=== PATIENT | female | born 1960 | race Caucasian/White ===

== ENCOUNTER 2018-04-27 10:17 | Outpatient (REF) | payer MEDICARE, MEDICAID, SELFPAY ==
[2018-04-27 22:15] LABS: ALT 49 U/L (12-78); AST 44 U/L (15-37); Alkaline Phosphatase 61 U/L (46-116); Anion Gap 12.5 mmol/L (3-11); BUN 12 mg/dL (7-18); Bilirubin, Total 0.7 mg/dL (0.2-1.0); CO2 23.5 mmol/L (21.0-32.0); CREATININE 0.74 mg/dL (0.55-1.02); Calcium 9.2 mg/dL (8.5-10.1); Chloride 104 mmol/L (98-107); Cholesterol 176 mg/dL (50-200); Glucose 106 mg/dL (70-100); HDL Cholesterol 57 mg/dL (40-60); LDL CHOLESTEROL 102 mg/dL (<100); Magnesium 1.4 mg/dL (1.8-2.4); Potassium 4.2 mmol/L (3.5-5.1); Sodium 140 mmol/L (136-145); Total Protein 6.7 g/dL (6.4-8.2); Triglyceride 158 mg/dL (30-150)
[2018-04-27 22:43] LABS: Creatine Kinase 88 U/L (26-192)
== END 2018-04-27 10:18 ==
LOC: NCHCN 10:17
PROVIDERS: PCP Nurse Practitioner Family; Visit Provider Nurse Practitioner Family
DX: E78.5 Hyperlipidemia, unspecified (principal); E83.42 Hypomagnesemia
CPT/HCPCS: 80053; 80061; 82550; 83721; 83735

== ENCOUNTER 2018-06-09 10:01 | Outpatient (REF) | payer MEDICARE, MEDICAID, SELFPAY ==
[2018-06-09 20:44] LABS: Magnesium 1.5 mg/dL (1.8-2.4)
== END 2018-06-09 10:21 ==
LOC: LBN 10:01
PROVIDERS: PCP Nurse Practitioner Family; Visit Provider Nurse Practitioner Family
DX: E83.42 Hypomagnesemia (principal); G89.29 Other chronic pain; E78.5 Hyperlipidemia, unspecified; R32 Unspecified urinary incontinence; Z72.0 Tobacco use
CPT/HCPCS: 83735

== ENCOUNTER 2022-01-12 14:10 | Outpatient (CLI) | payer MEDICARE, MEDICAID, SELFPAY ==
--- NOTE | 2022-01-12 14:00 | DI.RAD_ITS ---
Exam(s) XR HIP LT COMPLETE AP PELVIS EXAM: XR HIP LT COMPLETE AP PELVIS INDICATION: L hip pain. COMPARISON: No exams were available for comparison TECHNIQUE: 2D digital imaging was performed. Two views. FINDINGS: Severe narrowing of the left hip joint space, periarticular spurring and sclerosis. Mild spurring at the right hip joint. Right hip joint space is well maintained. IMPRESSION: Advanced degenerative changes of the left hip. DATA REPOSITORY: RADIATION DOSE DELIVERED:
== END 2022-01-12 14:11 | disposition home or self-care (01) ==
LOC: DIORS 14:10
PROVIDERS: PCP Registered Nurse Diabetes Educator; Referring Provider Nurse Practitioner Family; Visit Provider Student in an Organized Health Care Education/Training Program
DX: M16.12 Unilateral primary osteoarthritis, left hip
CPT/HCPCS: 99203; 73502

== ENCOUNTER → 2022-01-28 12:43 | Outpatient (BNVA) | payer MEDICARE, MEDICAID, SELFPAY | PROVIDERS: PCP Registered Nurse Diabetes Educator; Referring Provider Registered Nurse Diabetes Educator; Visit Provider Physician Assistant | DX: Z01.818 Encounter for other preprocedural examination (principal); M16.12 Unilateral primary osteoarthritis, left hip ==

== ENCOUNTER 2022-02-16 03:06 | Outpatient (CLI) | payer MEDICARE, MEDICAID, SELFPAY ==
[2022-02-16 10:35] LABS: HGB 13.7 g/dL (11.2-15.7); MCHC 33.4 % (32.0-36.0); MCV 93 fL (80-95); Platelet Count 216 10^3/uL (130-400); RBC 4.42 10^6/uL (3.93-5.22); RDW 12.7 % (11.7-14.6); RDW-SD 43.3 fL; WBC 10.79 10^3/uL (4.4-10.8)
[2022-02-16 11:49] LABS: Anion Gap 10.8 mmol/L (3-11); BUN 10 mg/dL (7-18); CO2 27.2 mmol/L (21.0-32.0); CREATININE 0.7 mg/dL (0.55-1.02); Chloride 104 mmol/L (98-107); Glucose 111 mg/dL (74-106); Sodium 142 mmol/L (136-145)
[2022-02-16 13:45] LABS: Source Nasal/Nares
[2022-02-16 21:01] LABS: COVID-19 PCR Negative (Negative)
== END 2022-02-16 03:07 | disposition home or self-care (01) ==
PROVIDERS: PCP Registered Nurse Diabetes Educator; Visit Provider Student in an Organized Health Care Education/Training Program
DX: M25.552 Pain in left hip (principal); M16.12 Unilateral primary osteoarthritis, left hip; Z20.822 Contact with and (suspected) exposure to COVID-19; Z01.818 Encounter for other preprocedural examination; Z01.812 Encounter for preprocedural laboratory examination
CPT/HCPCS: 36415; 80048; 85027; 87635; U0005

== ENCOUNTER 2022-02-16 03:31 | Outpatient (CLI) | payer MEDICARE, MEDICAID, SELFPAY | END 2022-02-16 03:32 | disposition home or self-care (01) | PROVIDERS: PCP Registered Nurse Diabetes Educator; Visit Provider Student in an Organized Health Care Education/Training Program ==

== ENCOUNTER 2022-02-17 08:00 | Day surgery (SDC) | payer MEDICARE, MEDICAID, SELFPAY ==
[2022-02-17] VITALS (7 sets, daily range): BP systolic 90–172; BP diastolic 56–86; PULSE 57–72; RESP 16–22; TEMP 36.1–36.6; O2SAT 97–100; BMI 29.7
--- NOTE | 2022-02-17 07:57 | PDOC.DSDIS_ITS ---
Discharge Plan Disposition Patient Disposition: HOME Condition: Stable Discharge Details Reason For Visit: Left CHARITY Attending Provider: Tim Romero Primary Care Provider: Maryam Parra Home Meds and New Rx's Prescriptions: New celecoxib [Celebrex] 200 mg capsule 200 mg PO BID Qty: 60 0RF aspirin 81 mg tablet,delayed release (DR/EC) 81 mg PO BID Qty: 60 0RF acetaminophen 500 mg capsule 1,000 mg PO Q8H PRN PRNQty: 90 0RF oxycodone 5 mg tablet 5 mg PO Q4H PRNQty: 18 0RF Continued cholecalciferol (vitamin D3) 50 mcg (2,000 unit) capsule 50 mcg PO DAILY ascorbate calcium (vitamin C) 500 mg tablet 500 mg PO DAILY famotidine 40 mg tablet 40 mg PO DAILY baclofen 20 mg tablet 20 mg PO TID Rx Instructions: to be taken 3 times per day, 2 tabs qhs, per neurologist citalopram 20 mg tablet 20 mg PO DAILY simvastatin 20 mg tablet 20 mg PO DAILY epinephrine 0.3 mg/0.3 mL auto-injector 0.3 mg IM ONCE Rx Instructions: as a single dose; may repeat once loperamide-simethicone 2-125 mg Tablet,Chewable 1 tab PO DAILY PRN omeprazole 20 mg capsule,delayed release(DR/EC) 40 cap PO DAILY Label Comments: TAKE TWO CAPSULES BY MOUTH EVERY DAY Discontinued acetaminophen [Tylenol] 325 mg tablet 325 mg PO Q4H PRN No Action acetaminophen [Tylenol] 325 mg Capsule 650 mg Discharge Instructions Additional Instructions: Total Hip Discharge Instructions Activity: The most important activity is to walk. You should try to take short walks a few times a day. You have no restrictions on movement or positioning, but do not try to force what you do. You will find some stiffness and weakness with hip flexion (lifting your knee). Do not try to strengthen this too early, continue to practice walking and stairs and this will come. - Outpatient physical therapy can be helpful to help return you to a normal gait and improve your flexibility and strength. This can start around 2 weeks. For some patients, it?s not necessary. Usually this is determined at the time of discharge or at the first post-operative visit. - You should wear the DIXON hose on both legs for 2 weeks. Dressing: Keep the surgical dressing in place for at least one week. After the first week it may be removed and replace with light gauze and tape or nothing. It may get wet after 3 days but avoid soaking the dressing. If it gets wet, just lightly pat dry. It is important to always keep some gauze between skin folds, especially when you are sitting. Spend some time with the wound exposed when you are lying flat as the incision does wrinkle onto itself. Medications: - You should take Tylenol and an anti-inflammatory Celebrex as your primary pain control medications. If the Celebrex is too expensive or not covered, please call the office for another alternative (Advil/Ibuprofen or Naproxen/Aleve). - You have been prescribed a stronger pain medication Oxycodone for breakthrough pain, take as needed as prescribed. - Continue with your previously prescribed stomach acid reduction agent Famotidine to help reduce stomach acid and reflux. - You will be taking Aspirin 81mg twice a day for DVT prevention unless instructed otherwise. - If you have constipation you should take Colace or Miralax (both [id number]). It takes most people 3-4 days to have a bowel movement. Follow-up: 2 weeks If you have any acute concerns or questions, please do not hesitate to contact the office at [phone]. You may contact Dr. Romero with any questions after hours through the hospital at [phone] or on his cell phone at [phone]. Stand Alone Forms: Anesthesia Discharge Inst., Zain Persaud (U) Referrals: Tim Romero MD [ [facility]] - Equipment/Supplies: Walker Activity:: Activity as Tolerated Remove Dressings/Wound Care:: Do Not Remove Shower/Bathe:: 72 hours Diet:: As Tolerated Discharge Orders Discharge Orders: Discharge Order (Routine); Ordered 02/17/22 Ordered By: Tim Romero DS: Diagnosis Discharge Diagnosis (1) Primary osteoarthritis of left hip: Status: Chronic
--- NOTE | 2022-02-17 08:14 | W.ANESPRE ---
General Info Date of Service Date Performed: 02/17/22 Height: 5 ft 1.5 in Weight: 72.575 kg Body Mass Index (BMI): 29.7 Surgical Procedure: Operation Date: 02/17/22 12:20 Proposed Procedure Side Surgeon p Hip Total Hip Anterior Left Tim Romero MD Meds Allergies and Home Medications Allergies Allergy/AdvReac Type Severity Reaction Status Date / Time iohexol [From Omnipaque] Allergy Severe Anaphylaxis Unverified 02/17/22 08:30 meloxicam Allergy Intermediate Hives Verified 02/17/22 08:30 glatiramer (copolymer 1) Allergy Unknown Verified 02/17/22 08:30 [From Copaxone] iv contrast Allergy Severe Anaphylaxis Uncoded 02/17/22 08:30 Home Medication Medication Instructions Recorded baclofen 20 mg tablet 20 mg PO TID 12/30/21 citalopram 20 mg tablet 20 mg PO DAILY 12/30/21 epinephrine 0.3 mg/0.3 mL 0.3 mg IM ONCE 12/30/21 injection, auto-injector famotidine 40 mg tablet 40 mg PO DAILY 12/30/21 simvastatin 20 mg tablet 20 mg PO DAILY 12/30/21 ascorbate calcium (vitamin C) 500 500 mg PO DAILY 01/28/22 mg tablet cholecalciferol (vitamin D3) 50 50 mcg PO DAILY 01/28/22 mcg (2,000 unit) capsule loperamide-simethicone 2 mg-125 mg 1 tab PO DAILY PRN 02/16/22 chewable tablet omeprazole 20 mg capsule,delayed 40 cap PO DAILY 02/16/22 release acetaminophen 325 mg capsule 650 mg 02/17/22 (Tylenol) acetaminophen 500 mg capsule 1,000 mg PO Q8H PRN PRN #90 caps 02/17/22 aspirin 81 mg tablet,delayed 81 mg PO BID #60 tabs 02/17/22 release celecoxib 200 mg capsule (Celebrex) 200 mg PO BID #60 caps 02/17/22 oxycodone 5 mg tablet 5 mg PO Q4H PRN #18 tabs 02/17/22 Current Visit Medications: Current Medications Generic Name Dose Route Start Last Admin Trade Name Freq PRN Reason Stop Dose Admin Acetaminophen 1,000 mg 02/17/22 06:00 Acetaminophen 500 Mg Tab PO 02/17/22 16:00 PREOP ZAKI Acetaminophen 1,000 mg 02/17/22 14:00 Acetaminophen 500 Mg Tab PO TID ZAKI Aspirin 81 mg 02/17/22 20:00 Aspirin E.C. 81 Mg Tabec PO BID [facility] Celecoxib 400 mg 02/17/22 06:00 Celecoxib 200 Mg Cap PO 02/17/22 16:00 PREOP ZAKI Celecoxib 200 mg 02/17/22 20:00 Celecoxib 200 Mg Cap PO BID ZAKI Docusate Sodium 100 mg 02/17/22 07:54 Docusate Sodium 100 Mg Cap PO BID PRN PRN Constipation Hydromorphone HCl 0.5 mg 02/17/22 07:54 Hydromorphone 2 Mg/Ml Vial IVP Q2H PRN PRN Ringer's Solution 1,000 mls @ 80 mls/hr 02/17/22 06:00 IV 03/12/22 23:59 INFUSION ZAKI Cefazolin Sodium/Dextrose 2 gm in 50 mls @ 100 mls/hr 02/17/22 06:00 Ancef Duplex IVPB 02/17/22 23:59 PREOP [facility] Tranexamic Acid 1,000 mg/ 60 mls @ 360 mls/hr 02/17/22 06:00 Sodium Chloride IV 02/17/22 16:00 PREOP ZAKI Cefazolin Sodium/Dextrose 1 gm in 50 mls @ 100 mls/hr 02/17/22 17:00 Ancef Duplex IVPB 02/18/22 09:29 Q8H [facility] IV Miscellaneous Supplies 1 each 02/17/22 06:00 Iv Access IV 03/12/22 23:59 DIRECTED ZAKI Ondansetron HCl 4 mg 02/17/22 07:54 Ondansetron 4 Mg/2 Ml Vial IVP Q6H PRN PRN Nausea Oxycodone HCl 0 mg 02/17/22 07:54 Oxycodone 5 Mg Tab PO Q3H PRN PRN Pain Pantoprazole Sodium 40 mg 02/18/22 07:30 Pantoprazole 40 Mg Tabcr PO DAILY@0730 [facility] Sodium Chloride 0 ml 02/17/22 06:00 Normal Saline Flush 10 Ml Syr IV 03/12/22 23:59 PRN PRN Sodium Chloride 0 ml 02/17/22 06:00 Normal Saline 10 Ml Vial IJ 03/12/22 23:59 DIRECTED PRN Sterile Water 0 ml 02/17/22 06:00 Water,Injection,Sterile 10 Ml Vial IJ 03/12/22 23:59 DIRECTED PRN PFSH Active Problems Active Problems: Problem Status Onset Code Primary osteoarthritis of left hip M16.12 Primary osteoarthritis involving multiple joints M15.9 Cannabis use without complication F12.90 Hyperlipidemia E78.5 GERD (gastroesophageal reflux disease) K21.9 Anxiety F41.9 Tobacco use Z72.0 Dorsalgia M54.9 Chronic pain G89.29 Multiple sclerosis G35 Primary insomnia F51.01 Medical History Medical History (Updated 02/17/22 @ 08:35 by Ginna Baez) History of tobacco use Hx of gastroesophageal reflux (GERD) Hx of multiple sclerosis Surgical History Surgical History History of bladder suspension procedure History of hysterectomy History of skin graft Left great toe Status post tonsillectomy Partial Tobacco Smoking/Tobacco Use Status: Current every day Tobacco Type: cigarettes Alcohol Alcohol Intake: current Alcohol intake frequency: a few times a week Substance Use Substance use: Daily Substance use type: marijuana Vital Signs and Lab Results Vital Signs Most Recent Vital Signs in EMR: Temp Pulse Resp BP Pulse Ox 36.3 C L 63 18 163/80 H 98 02/17/22 08:55 02/17/22 08:55 02/17/22 08:55 02/17/22 08:55 02/17/22 08:55 Lab Results Blood Type / Crossmatch: No Data to Display Complete Blood Count: White Blood Count 10.79 10^3/uL (4.4-10.8) 02/16/22 10:25 Red Blood Count 4.42 10^6/uL (3.93-5.22) 02/16/22 10:25 Hemoglobin 13.7 g/dL (11.2-15.7) 02/16/22 10:25 Hematocrit 41.0 % (36.0-46.0) 02/16/22 10:25 Platelet Count 216 10^3/uL (130-400) 02/16/22 10:25 Complete Metabolic Panel: Sodium Level 142 mmol/L (136-145) 02/16/22 10:25 Potassium Level 4.0 mmol/L (3.5-5.1) 02/16/22 10:25 Chloride Level 104 mmol/L (98-107) 02/16/22 10:25 Carbon Dioxide Level 27.2 mmol/L (21.0-32.0) 02/16/22 10:25 Blood Urea Nitrogen 10 mg/dL (7-18) 02/16/22 10:25 Creatinine 0.7 mg/dL (0.55-1.02) 02/16/22 10:25 Estimated GFR/1.73 m2 >= 60.00 (mL/min/1.73m2) 02/16/22 10:25 Calcium Level 9.0 mg/dL (8.5-10.1) 02/16/22 10:25 Glucose Level 111 mg/dL (74-106) H 02/16/22 10:25 Liver Function Panel: No Data to Display Coagulation Panel: No Data to Display Cardiac Panel: No Data to Display Arterial Blood Gas: No Data to Display Venous Blood Gas: No Data to Display Pancreas Panel: No Data to Display Thyroid Panel: No Data to Display Infectious Disease: Coronavirus (COVID-19)(PCR) Negative (Negative) 02/16/22 10:31 Coronavirus 2019 Source Nasal/Nares 02/16/22 10:31 Blood Cultures: No Data to Display Toxicology Panel: No Data to Display Imaging and Studies Imaging and Studies Study information below may be from another EMR and interpreted by another provider. Please see original notes in EMR for more complete details. EKG Summary: 11/06/21: normal sinus. Stress Test Summary: 2008: negative. Pulmonary Function Summary: 02/05/22: normal spirometery, normal diffusing capacity. Anesthesia Assessment and Plan Anesthesia History Personal History: No History of Anesthesia Complications Family History: No Family History of Anesthesia Complications Exercise Tolerance Exercise Tolerance: Metabolic Equivalents>4 Cardiac & Pulmonary Exam Cardiac Exam: Normal S1/S2 Heart Sounds Pulmonary Exam: Clear Bilateral Breath Sounds Implantable Cardiac Device Does patient have a Pacemaker or an ICD?: No Airway Exam Known Difficult Airway: No Mallampati Class: 2 Mouth Opening: Normal (> 3cm) Thyromental Distance: Greater than 3 cm Neck Range of Motion: Full ROM Neck Circumference: Normal Teeth Condition: Normal Dentition ASA Classification ASA Score: ASA 2 Emergency Case?: No NPO Status NPO Status: NPO Clears >2 hours, Solids >8 hours Anesthesia Plan Resuscitation Status: Full Code Anesthesia Technique: Spinal Anesthesia Airway Planned: Natural Airway Monitors Used: Standard Monitors Preoperative Comments:: 62 yo female for left hip arthroplasty. Sig PMHx: smoker (tobacco/cannabis), GERD (well controlled on omeprazole/famotidine), anxiety, MS (no recent issues). stress test 2008: negative. PFT: normal EKG: nsr. No anesthesia history available, however did have a lumbar puncture in the 80's and she states that it took an hour or more to get it. Discussed risks and benefits of spinal vs general, would like to try spinal and go to [place] if needed.
[2022-02-17] MEDS: Acetaminophen 500 MG TAB 1000 MG PO (08:50)
[2022-02-17] MEDS: Celecoxib 200 MG CAP 400 MG PO (08:50)
[2022-02-17] MEDS: Lactated Ringers 1,000 ML 80 ML IV (09:30)
[2022-02-17] MEDS: ceFAZolin 2 GM/50 ML BAG IVPB (10:43)
--- NOTE | 2022-02-17 11:49 | DI.RAD_ITS ---
Exam(s) XR HIP LT IN OR EXAM: XR HIP LT IN OR CLINICAL HISTORY: LEFT TOTAL HIP. TECHNIQUE: 2D and realtime digital imaging was performed. COMPARISON: No exams were available for comparison FINDINGS: Fluoroscopy was provided in the OR for Dr. Romero. Hard copy images show placement of a left hip p rosthesis. Please see procedure note for details. Fluoro time 23.4 seconds RADIATION DOSE DELIVERED: tessa Hollingsworth=2.79 mGy
--- NOTE | 2022-02-17 12:25 | W.ANESPOSTOP ---
Postoperative Evaluation Date, Time and Location Date Performed: 02/17/22 Time Performed: 12:25 Patient Location: PACU Vital Signs Most Recent Imported Vital Signs: Most Recent Vital Signs Temp Pulse Resp BP Pulse Ox 36.4 C L 66 22 128/58 L 99 02/17/22 12:20 02/17/22 12:20 02/17/22 12:20 02/17/22 12:20 02/17/22 12:20 Pain Score Most Recent Pain Score: Most Recent Pain Score Pain Level 0 02/17/22 12:20 Assessment Mental Status: Awake (Alert & Oriented to Patient Baseline) Airway and Respiratory Function: Patent airway with normal (patient baseline) respiratory exam Cardiovascular Function: Hemodynamically Stable Hydration Status: Adequately Hydrated Nausea & Vomiting: No Nausea or Vomiting Pain: Pain is tolerable per patient Peripheral Nerve Block: Other (spinal still in effect, but mostly worn off. )
[2022-02-17] MEDS: oxyCODONE 5 MG TAB PO (12:58)
--- NOTE | 2022-02-17 13:30 | PT.INIE ---
Date of service: 02/17/22 Time of Service: 13:30 PT Notes Visit Reasons: Left CHARITY Physical Therapy Day Surgery Initial Evaluation Date: 02/17/2022 Referring Doctor: PEDRO Noel PT Orders: PT CONSULT: S/P Ortho surgery Precautions: WBAT on left LE with AD. Patient Profile/Admitting Diagnosis: Marielena is a 62-year-old female with primary unilateral osteoarthritis of the left hip and status post left anterior total hip arthroplasty on postoperative day 0. PMHX: All Active Problems?(Updated 01/12/22 @ 14:13 by PEDRO Jensen) Primary osteoarthritis of left hip (Acute) Primary osteoarthritis involving multiple joints (Acute) Cannabis use without complication (Acute) Hyperlipidemia (Acute) GERD (gastroesophageal reflux disease) (Chronic) Anxiety (Chronic) Tobacco use (Acute) Dorsalgia (Acute) Chronic pain (Chronic) Multiple sclerosis (Chronic) Primary insomnia (Acute) Surgical History?(Updated 01/28/22 @ 13:20 by Jessica Emery) History of bladder suspension procedure History of hysterectomy History of skin graft Left great toeStatus post tonsillectomy Partial Social History/Home Situation: Lives with significant other in a private home with 3 steps to enter without rails. Equipment Owned/DME: None Subjective: Agreeable to PT consult. Reports 6/10 pain in the left hip at rest and 8/10 pain with walking. In a hurry to get discharged from hospital, needing to smoke a cirgarette. Objective: General Observation: Restless. Anxious about smoking her cigarette. Mepilex Ag over surgical incision. TEDS in B legs. Mental Status: Alert and oriented x 4 Pain: 6/10 pain at rest, 8/10 with weight bearing ROM: Right Lower Extremity: Hip flexion WFL. Hip abduction WFL. Knee flexion WFL. Ankle dorsiflexion WFL. Ankle plantarflexion WFL. Left Lower Extremity: Hip flexion lacks the last 25% of AROM due to pain report. Hip abduction WFL. Knee flexion WFL. Ankle dorsiflexion WFL. Ankle plantarflexion WFL. Strength: Right Lower Extremity: Hip flexors 5/5. Hip abductors 5/5. Knee flexors 5/5. Knee extensors 5/5. Ankle dorsiflexors 5/5. Ankle plantarflexors 5/5. Left Lower Extremity: Hip flexors 3-/5. Hip abductors 4-/5. Knee flexors 4/5. Knee extensors 4/5. Ankle dorsiflexors 5/5. Ankle plantarflexors 5/5. Sensation: Inatct as to pain and light pressure in B LE Bed Mobility/Transfers: Supine to sit stand by assist Sit to stand stand by assist Stand to sit contact guard assist Bed to chair contact guard assist Gait: Assisted patient with level surface ambulation of 100 feet using front wheeled walker with step to gait pattern requiring standby assist. Gait mildly antalgic. No loss of balance. No shortness of breath. Stairs: Negotiated 6 x 4 inch steps and 4 x 6 inch steps while holding onto bilateral rails with step-to gait pattern requiring standby assist. Balance: Static Sitting: Normal Dynamic Sitting: Normal Static Standing: Fair Dynamic Standing: Fair Special Tests: Mobility Limitations Standardized Measure [facility]-P[facility] 6 clicks Basic Mobility Inpatient Short Form: Raw Score: 22 CMS Score: 21% deficit Informed Consent/Education: Patient instructed in purpose of PT consult. Education and training on initial set of exercises that can be done at home have been completed with patient. Assessment: Generally demonstrates functional mobility decline requiring the use of front wheeled walker for all mobility ADL performance to reduce fall risk and maximize independence Patient presents with clinical signs and symptoms consistent with current/admitting diagnoses that have resulted to mobility limitations, gait instability, generalized weakness, and impairment of motor control as demonstrated by the following impairment level findings: 1. Decreased strength to left hip major muscle groups 2. Impaired standing balance 3. Limitation of joint range of motion in hip 4. Pain and left hip at 6-8/10 Impairments are contributing to the following functional limitations: 1. Inability to safely ambulate without assistive device 2. Increase completion time for mobility ADL performance 3. Increased fall risk Patient is assessed as a 15258 moderate complexity based on the following: History: 62-year-old female with impairment level findings, functional limitations, and past medical history as indicated above Examination: Demonstrable impairment in strength, balance, and mobility level with underlying impairments and functional limitations as documented above Presentation: Evolving Decision Makin moderate complexity Goals: N/A. PT evaluation and 1-2 treatment sessions only for functional mobility training using recommended AD and for HEP instruction. Plan of Care/Treatment Plan: N/A. PT evaluation and 1-2 treatment session only for functional mobility training using recommended AD and for HEP instruction. DISCHARGE RECOMMENDATIONS: Home when medically cleared by orthopedic surgeon. Will benefit from outpatient physical therapy services in order to fully return to independent community ambulation and independent ADL performance without an assistive device. TREATMENT CODE/TIME: 82064 x 22 minutes beginning at 13:30 PM. Thank you for the opportunity to participate in the care of this patient. Meg Hyman PT, DPT, CLT [facility] [place], [place]
--- NOTE | 2022-02-17 14:17 | W.PM.OP ---
Date of service: 02/17/22 Time of Service: 11:45 Operative Note Operative Note DATE OF PROCEDURE: 02/17/22 PRE-OP DIAGNOSIS: Left Hip Osteoarthritis POST-OP DIAGNOSIS: same PROCEDURE: Left Anterior Total Hip Arthroplasty with Intraoperative Navigation SURGEON: Tim Romero QUARTER BACKER: Rimma Saldivar ANESTHESIA TYPE: Spinal Refer to Anesthesia Record ESTIMATED BLOOD LOSS: 250 PATHOLOGY: none sent TOURNIQUET TIME: 0 COMPLICATIONS: None Patient was transported to: PACU Patient's condition: stable Implants: 1. Depuy Silverton Acetabular Component, 50mm 2. Depuy Acetabular Liner, 70x68ym 3. Depuy Corail Standard 125 deg Collared Femoral Stem, Size 12 4. Depuy Altrx Ceramic Femoral Head, Size 32+1mm Indications: I have seen Slava in clinic for symptoms of hip arthritis, confirmed with radiographic findings. She has exhausted nonoperative methods and was having significant limitations in daily function and desired better function and less pain. I discussed the technical details of a hip replacement. I explained the risks of the procedure to include, but not limited to, bleeding, infection, pain, stiffness, fracture, damage to nerves and vessels, damage to muscles and tendons, loosening, instability, leg length inequality, need for repeat procedure, blood clot and cardiopulmonary demise. Despite these risks, Slava elected to proceed. Findings: There was significant signs of arthritis throughout the hip with complete loss of cartilage from the superior femoral head. Procedure Description: Slava was greeted in the preoperative holding area where the correct side was identified and marked. The consent was reviewed with the patient and signed. The history and physical was updated. All questions were answered. She was taken back to the operating room. A spinal anesthestic was then administered. The feet were wrapped with cast padding and Coban and then placed into the boot liners and then into the boots. Care was taken to protect the skin and make sure the heels were fully down and the boots were stable. The patient was then positioned onto the HANA table. Both legs were held in a neutral position. SCDs were applied. The patient was then slid down onto a peroneal post. Prophylactic antibiotics in the form of Cefazolin were administered. 1g of Tranxemic Acid was given intravenously within 30 minutes of incision. The left leg was then prepped with Chloraprep and draped in a standard fashion. A second prep with Chloraprep was performed prior to placement of a shower-curtain type drape with Iodine impregnated skin protection. A timeout to confirm correct identity, side and site, procedure, allergies, anesthesia, and medical concerns was performed. An obliquely oriented incision was made starting lateral to the ASIS and running distal over the Tensor Fascia Patti (TFL) muscle belly toward the fibular head, approximately 10cm. The skin and soft tissue was dissected sharply, through Antonio?s fascia, and to the fascia of the TFL. With the fascia and superior border of the IT band identified, the fascia was incised with a new knife just above any perforators from the IT band. The TFL muscle belly was bluntly dissected away from the fascia and moved laterally. The fat between TFL and rectus was identified to ensure the dissection was not within the TFL. Blunt dissection created space between abductors and the capsule and retractor was placed over the lateral femoral neck. The fibers of the rectus femoris tendon were identified and these were freed from the anterior capsule. A second cobra retractor was placed around the medial femoral neck. The TFL was further retracted laterally to show the deep fascia. Careful dissection through this layer identified three main crossing vessels of the lateral femoral circumflex. These were cauterized in multiple locations and then cut without any noticeable bleeding. The TFL was further released bluntly from the deep fascia to expose anterior hip capsule and fat The Dilan orthopaedic retractor was then placed beneath the TFL and against sartorius and medial soft tissues to protect and retract the soft tissues. A T-capsulotomy was then performed starting at the superior lateral acetabulum and moving distally to the intertrochanteric ridge. These capsular flaps were tagged with a No. 1 Ethibond and elevated from within. The capsular flaps were released to the shoulder of the lateral neck and to the lesser trochanter to give excellent visualization of the proximal femur. A neck osteotomy was performed using an oscillating saw based on preoperative templates. This cut started in the shoulder and of the lateral neck and exited medially. The saw was at all times directed medially to avoid injury to the greater trochanter. Gross traction was applied to the leg and the osteotomy opened. The femoral head was removed with a corkscrew, making sure to protect the TFL on its exit. Traction was released after head removal. This was measured on the back table to determine the starting reamer size. Portions of the rectus obscuring visualization were minimally elevated off the superior acetabulum. An anterior retractor was placed over the anterior wall between capsule and labrum and attached to the Gripper retraction system. The femur was rotated to 90 degrees and medial capsule was fully released until the lesser trochanter was palpable and visible; the femur was returned to 30 degrees. A posterior retractor was placed similarly between capsule and labrum. This provided excellent visualization. The contents of the cotyloid fossa were removed with electrocautery and the labrum was removed with a knife. There was significant chondromalacia of the superior acetabulum. Acetabular reaming began with a 46mm reamer. This first reaming was directed anterior to posterior and medial to get down to the true floor. This was inspected and reamed until the true floor was reached. The anterior retractor was then released and entry and exit was provided by traction on the capsular flaps. I then reamed sequentially up to a 50mm reamer where good fit was obtained. The larger reamers were oriented based on anatomical reference of the anterior and lateral glaser to ensure proper abduction and anteversion. Positioning and size was confirmed with the fluoroscopy. A 50mm Depuy Silverton acetabular component was selected. The acetabulum was reamed around the periphery with the selected acetabular size to prevent a rim fit. The deep tissues were irrigated. The acetabular component was then impacted in a position of about 40-45 degrees of abduction and 15-20 degrees of anteversion, using the patient?s anatomy as the ultimate landmark. Fluoroscopy was used to confirm this. There was excellent research management associate of the acetabular component and the inserting handle was removed. The acetabular liner, Depuy [id number] polyethylene liner, was inserted and lined up with the tines of the acetabular component. There was no soft tissue interposition. The liner was then impacted into position and confirmed to be well-seated. A portion of the tanesha-articular cocktail was then injected around the acetabulum into the capsule and periosteum. This cocktail consisted of 123mg of Ropivacaine, 0.25mg of Epinephrine, 0.04mg of Clonidine, and 15mg of Ketorolac, diluted to 50cc. The leg was rotated to 120 degrees. Any remaining medial capsule was released until the lesser trochanter was easily palpable. A retractor was placed medially. The lateral capsule was further released into the shoulder to allow access to the greater trochanter. A Christie retractor was placed over the greater trochanter which allowed the trochanter to flip in front of the capsule for excellent exposure. The leg was brought down into maximal extension and 20 degrees of adduction while ensuring there was no impingement on the acetabulum. Any remnant capsule within the trochanter was released. Piriformis and obturator externis were identified and protected. There was excellent access to the proximal femur. The lateral neck remnant was removed with a rongeur. A blunt canal probe was used to identify the canal and trajectory for later broaching. A box osteotome initiated the broach course. A small curved rasp and a curved curette were used to work laterally. Broaching then began with a size 8 Corail broach. This was inserted manually around the trochanter and into the canal before mallet blows. The broach was seated to the neck cut level based on the neck cut and the preoperative template. Sequential broaching was continued with the manual broaching until a tight fit was obtained with good rotational control of the femur. A trial coxa vara neck was inserted along with a +1 trial head. The leg was brought out of extension and adduction and then reduced with traction and internal rotation. The leg was stable anteriorly in a position of 30 degrees of extension and 90 degrees of external rotation. Fluoroscopy was used to ensure there was no fracture and the stem was seated well. Leg lengths were checked with an AP pelvis and pelvic reference points. TickTickTickets navigation system was used to confirm appropriate positioning and leg length and offset. This overdid the offset but this would be improved with the 125 standard neck. Once content with the desired offset and leg lengths, the leg was brought back into extension, external rotation and adduction. The periosteum and surrounding tissue was injected with remaining portion of the tanesha-articular cocktail. The proximal femur was irrigated as well as the deep tissues. The Depuy Corail standard 125 degree collared stem, size 12, was then manually inserted into the proximal femur making sure to control rotation. It was then malleted into position with light blows, giving breaks to allow bone expansion and decrease risk of fracture. The selected Depuy Altrx Ceramic Head, size 32+1mm, was then placed onto the clean and dry trunnion and secured with impaction onto the tapered fit. The leg was brought back out of extension and adduction and reduced with traction and internal rotation. Stability was confirmed with no shuck at 90 degrees of external rotation and 30 degrees of extension. No impingement through range of motion arc. Final x-ray images were obtained with fluoroscopy to confirm adequate positioning and no intraoperative fracture. The deep tissues were thoroughly irrigated with Surgiphor, betadine solution. This was allowed to sit in the wound for 3 minutes before being thoroughly irrigated out with normal saline. The capsule was then reapproximated with the previously placed Ethibond sutures. The TFL fascia was finally closed with a No. 2 Stratafix, barbed suture. Deep tissues were then reapproximated with 0 Vicryl and a running 2-0 Vicryl. The skin was closed with a running 4-0 Monocryl in a subcuticular fashion. This was reinforced with skin glue. A Mepilex silver dressing was applied. At the end of the case, all counts were correct. Slava was transferred to the hospital bed without difficulty and suffering no apparent complication. Slava has a good prognosis. Physical therapy will start today and without restrictions, weight-bearing as tolerated. Aspirin 81mg BID will be used for DVT prophylaxis.
== END 2022-02-17 13:57 | disposition home or self-care (01) ==
PROVIDERS: PCP Registered Nurse Diabetes Educator; Visit Provider Student in an Organized Health Care Education/Training Program
PROC: (CPT 27130; principal; 2022-02-17 12:00)
DX: M16.12 Unilateral primary osteoarthritis, left hip (principal); F12.90 Cannabis use, unspecified, uncomplicated; F17.210 Nicotine dependence, cigarettes, uncomplicated; G35 Multiple sclerosis; K21.9 Gastro-esophageal reflux disease without esophagitis
CPT/HCPCS: 20985; 27130; C1776; 97162; 73501; J0690; J1100; J2250; J2405

== ENCOUNTER 2022-03-02 13:03 | Outpatient (CLI) | payer MEDICARE, MEDICAID, SELFPAY ==
--- NOTE | 2022-03-02 12:36 | DI.RAD_ITS ---
Exam(s) XR HIP LT COMPLETE AP PELVIS EXAM: XR HIP LT COMPLETE AP PELVIS CLINICAL HISTORY: 1ST POST OP L TKA. TECHNIQUE: 2D digital imaging was performed. Two images were obtained. AP and lateral views were ob tained. COMPARISON: CR XR HIP LT COMPLETE AP PELVIS from 01/12/2022 XA XR HIP LT IN OR from 02/17/2022 FINDINGS: BONES: There are stable post operative changes present. No fracture or dislocation. JOINTS: The orthopedic hardware is in good position. SOFT TISSUE: Normal. IMPRESSION: Stable postoperative changes. DATA REPOSITORY: RADIATION DOSE DELIVERED:
== END 2022-03-02 13:04 | disposition home or self-care (01) ==
LOC: DIORS 13:04
PROVIDERS: PCP Registered Nurse Diabetes Educator; Referring Provider Registered Nurse Diabetes Educator; Visit Provider Student in an Organized Health Care Education/Training Program
DX: Z47.1 Aftercare following joint replacement surgery (principal); Z96.642 Presence of left artificial hip joint
CPT/HCPCS: 73502

== ENCOUNTER → 2022-04-02 11:20 | Outpatient (BNVA) | payer MEDICARE, MEDICAID, SELFPAY | PROVIDERS: PCP Registered Nurse Diabetes Educator; Referring Provider Registered Nurse Diabetes Educator; Visit Provider Student in an Organized Health Care Education/Training Program | DX: Z47.1 Aftercare following joint replacement surgery (principal); Z96.652 Presence of left artificial knee joint ==

== ENCOUNTER 2023-03-11 10:07 | Outpatient (CLI) | payer MEDICARE, MEDICAID, SELFPAY ==
--- NOTE | 2023-03-11 09:45 | DI.RAD_ITS ---
Exam(s) XR HIP PELVIS ADULT BL EXAM: XR HIP PELVIS ADULT BL CLINICAL HISTORY: ANNUAL F/U L CHARITY. TECHNIQUE: 2D digital imaging was performed. Three views. COMPARISON: CR XR HIP LT COMPLETE AP PELVIS from 03/02/2022 FINDINGS: There has been no change in the alignment of the left hip prosthesis. There are no suspicious bony l ucencies. The right hip joint space is maintained. The SI joints and pubic symphysis are unremarkable. DATA REPOSITORY: RADIATION DOSE DELIVERED:
== END 2023-03-11 10:08 | disposition home or self-care (01) ==
LOC: DIORS 10:08
PROVIDERS: PCP Registered Nurse Diabetes Educator; Referring Provider Registered Nurse Diabetes Educator; Visit Provider Student in an Organized Health Care Education/Training Program
DX: Z96.642 Presence of left artificial hip joint (principal); M70.61 Trochanteric bursitis, right hip
CPT/HCPCS: 20610; 73521; J1040

== ENCOUNTER → 2023-06-15 11:09 | Outpatient (BNVA) | payer MEDICARE, MEDICAID, SELFPAY | PROVIDERS: Visit Provider Student in an Organized Health Care Education/Training Program | DX: M19.011 Primary osteoarthritis, right shoulder (principal); M75.101 Unspecified rotator cuff tear or rupture of right shoulder, not specified as traumatic | CPT/HCPCS: 99204; 99214 ==

== ENCOUNTER → 2023-06-18 00:57 | Outpatient (CLI) | payer MEDICARE, MEDICAID, SELFPAY ==
--- NOTE | 2023-06-18 15:12 | DI.CT_ITS ---
Exam(s) CT UPPER EXTREMITY RT WO EXAM: CT UPPER EXTREMITY RT WO CLINICAL HISTORY: PAIN, SURGICAL PLANNING,ROTATOR CUFF ARTHROPATHY,M12.811 TECHNIQUE: Imaging Protocol: Axial computed tomography images with coronal and sagittal reformatted images were created and reviewed. CONTRAST MATERIAL: Noncontrast COMPARISON: CR,DOC XR SHOULDER 2V OR MORE RT from 05/09/2023 FINDINGS: Bones: There is no evidence of fracture or dislocation. Severe degenerative changes of the glenohumeral joint with inferior spurring. Cysts in the humeral h ead. Spurring at the AC joint. Soft Tissues: A joint effusion is seen. Fluid in the subcoracoid bursa. Lungs: There is a question of a nodule versus area of scarring seen laterally in the right upper lob e. This is not fully included in the field of view in all planes.. This is in an area of other smal ler nodules and mild tree in bud infiltrates. There mildly increased interstitial changes in the rig ht upper lobe IMPRESSION: There degenerative changes of the glenohumeral joint and joint effusion. Question area of scar scarring laterally in the right upper lobe versus nodule. Chest CT recommended for further evaluation. Unexpected findings RADIATION DOSE DELIVERED: 742.22mGy.cm Total DLP DATA REPOSITORY: All CT scans at this facility are submitted to the National Radiology Data Registry (NRDR) Dose Index Registry (DIR) with the [employer] (A[employer]). RADIATION OPTIMIZATION: All CT scans at this facility use at least one of these dose optimization te chniques: automated exposure control; mA and/or kV adjustment per patient size (includes targeted exa ms where dose is matched to clinical indication); or iterative reconstruction.
== END ==
PROVIDERS: Visit Provider Student in an Organized Health Care Education/Training Program
DX: M12.811 Other specific arthropathies, not elsewhere classified, right shoulder (principal)
CPT/HCPCS: 73200

== ENCOUNTER → 2023-06-29 09:16 | Outpatient (BNVA) | payer MEDICARE, MEDICAID, SELFPAY | PROVIDERS: Visit Provider Student in an Organized Health Care Education/Training Program | DX: M19.011 Primary osteoarthritis, right shoulder (principal); M75.101 Unspecified rotator cuff tear or rupture of right shoulder, not specified as traumatic; F17.210 Nicotine dependence, cigarettes, uncomplicated | CPT/HCPCS: 99214 ==

== ENCOUNTER 2023-07-06 03:03 | Outpatient (CLI) | payer MEDICARE, MEDICAID, SELFPAY ==
[2023-07-06 13:09] LABS: Abs Immature Grans 0.07 10^3/uL (0.0-0.06); Absolute Basophil Count 0.04 10^3/uL (0.0-0.2); Absolute Eosinophil Count 0.09 10^3/uL (0.0-0.7); Absolute Monocyte Count 0.69 10^3/uL (0.1-0.8); Basophils % 0.3; Eosinophils % 0.6; HCT 43.3 % (36.0-46.0); HGB 14.8 g/dL (11.2-15.7); Immature Grans % 0.5; Lymphocytes % 22.1; MCH 31.7 pg (27.0-33.0); MCHC 34.2 % (32.0-36.0); MCV 93 fL (80-95); MPV 9.6 fL (8.0-11.0); Monocytes % 4.7; Neutrophils % 71.8; Platelet Count 272 10^3/uL (130-400); RBC 4.67 10^6/uL (3.93-5.22); RDW 12.4 % (11.7-14.6); RDW-SD 42.1 fL; WBC 14.63 10^3/uL (4.4-10.8)
[2023-07-06 13:11] LABS: Absolute Lymphocyte Count 3.23 10^3/uL (1.2-3.4)
[2023-07-06 13:36] LABS: Prothrombin Time 10.4 sec (9.1-11.1)
[2023-07-06 14:01] LABS: ALT 27 U/L (14-59); AST 19 U/L (15-37); Alkaline Phosphatase 77 U/L (46-116); Anion Gap 13.3 mmol/L (3-11); BUN 5 mg/dL (7-18); Bilirubin, Total 0.5 mg/dL (0.2-1.0); CO2 25.7 mmol/L (21.0-32.0); CREATININE 0.8 mg/dL (0.55-1.02); Calcium 9.6 mg/dL (8.5-10.1); Chloride 104 mmol/L (98-107); Estimated GFR 81.72 (mL/min/1.73m2); Glucose 157 mg/dL (74-106); Potassium 3.7 mmol/L (3.5-5.1); Sodium 143 mmol/L (136-145); Total Protein 7.1 g/dL (6.4-8.2)
== END 2023-07-06 03:04 | disposition home or self-care (01) ==
LOC: LBO 03:03
PROVIDERS: Visit Provider Student in an Organized Health Care Education/Training Program
DX: M19.011 Primary osteoarthritis, right shoulder (principal); F17.210 Nicotine dependence, cigarettes, uncomplicated
CPT/HCPCS: 36415; 80053; 85025; 85610

== ENCOUNTER → 2023-07-06 07:26 | Outpatient (CLI) | payer MEDICARE, MEDICAID, SELFPAY ==
--- NOTE | 2023-07-06 | DI.RAD_ITS ---
Exam(s) XR CHEST 2V PA LATERAL EXAM: XR CHEST 2V PA LATERAL CLINICAL HISTORY: PNEUMONIA, J18.9 TECHNIQUE: 2D digital imaging was performed. COMPARISON: CT CT CHEST LUNG CANCER SCREEN from 07/06/2023 FINDINGS: HEART: Normal size. Aorta: Not dilated. PULMONARY VASCULATURE: Normal. LUNGS: Clear. PLEURAL SPACE: No pleural effusion or pneumothorax. BONE:Unremarkable for age. IMPRESSION: No acute abnormality. DATA REPOSITORY: RADIATION DOSE DELIVERED:
--- NOTE | 2023-07-06 | DI.RAD_ITS ---
Exam(s) XR CERVICAL SP DIALLO TRAUMA 2-3V EXAM: XR CERVICAL SP DIALLO TRAUMA 2-3V CLINICAL HISTORY: ACUTE PAIN,RT SHOULDER,M25.511. TECHNIQUE: 2D digital imaging was performed. COMPARISON: No exams were available for comparison FINDINGS: Severe degenerative changes at C1-2. C2-3 and C3-4 disc spaces are maintained. There is moderate narrowing of the C4-5 and C5-6 disc spac es and mild narrowing at C6-7. There prominent facet degenerative changes from C2-3 through C4-5. T here is straightening of normal cervical lordosis secondary to the degenerative changes. The soft ti ssues are unremarkable. IMPRESSION: Degenerative changes, greatest at C4-5 and C5-6. DATA REPOSITORY: RADIATION DOSE DELIVERED:
--- NOTE | 2023-07-06 13:33 | DI.CTLCSR_ITS ---
Exam(s) CT CHEST LUNG CANCER SCREEN EXAM: CT CHEST LUNG CANCER SCREEN CLINICAL HISTORY: SCREENING FOR LUNG CA,CURRENT SMOKER,F17.210 TECHNIQUE: Imaging Protocol: Axial computed tomography images with coronal and sagittal reformatted images were created and reviewed. Low dose screening protocol. COMPARISON: CT,DOC CT LDCT FOR LUNG CA SCREEN from 06/01/2022 FINDINGS: Tracheobronchial tree: No bronchiectasis or mucus plugging.. Mediastinum and Mirella: No dominant adenopathy or fluid collection. Pulmonary parenchyma: No consolidation or dominant measurable mass. Mild emphysematous and fibrotic c hanges. Lung Nodules: 7 millimeter nodule anterior right upper lobe. Small adjacent nodules seen laterally a nd peripherally in the right upper lobe multiple other tiny nodules with tree-in-bud appearance. Thi s could be related to infectious or inflammatory process. Pleura: No effusion. No pneumothorax. Heart: The heart is not dilated. Minimal coronary artery calcifications are seen. Aorta: Thoracic aorta non-dilated. Upper abdomen: Unremarkable. Bones: Unremarkable for age. Soft Tissues: Unremarkable. IMPRESSION: New areas of nodularity in the right upper lobe could be related to infectious process. Follow-up lo w-dose CT recommended in 1 month. Lung RADS Cat 4A - Suspicious: Findings for which additional diagnostic testing and/or tissue samplin g recommended Lung-RADS 1.0 CATEGORIES: Category 0 - Prior chest CT exam(s) being located for comparison. Category 1 - Annual screening in 12 months. No nodules or definitely benign nodules. Category 2 - Annual screening in 12 months. Benign appearance. Nodules with low likelihood of becomin g active cancer. Category 3 - 6-month follow-up. Probably benign. Short-term follow-up suggested. Nodules with low lik elihood of becoming active cancer. Category 4A - 3-month follow-up and CT/PET if >8 mm in size. Suspicious finding. Findings which requi re additional testing. Category 4B - Findings which require additional testing and tissue sampling. Category 4X - Category 3 or 4 nodules with additional features or imaging findings that increases the suspicion of malignancy. Modifier S- Potentially clinically significant findings (non lung cancer) RADIATION DOSE DELIVERED: Total DLP DATA REPOSITORY: All CT scans at this facility are submitted to the National Radiology Data Registry (NRDR) Dose Index Registry (DIR) with the [employer] (ACR). RADIATION OPTIMIZATION: All CT scans at this facility use at least one of these dose optimization te chniques: automated exposure control; mA and/or kV adjustment per patient size (includes targeted exa ms where dose is matched to clinical indication); or iterative reconstruction.
== END ==
PROVIDERS: Visit Provider Registered Nurse Diabetes Educator
DX: F17.210 Nicotine dependence, cigarettes, uncomplicated (principal); Z12.2 Encounter for screening for malignant neoplasm of respiratory organs; R91.8 Other nonspecific abnormal finding of lung field; M50.121 Cervical disc disorder at C4-C5 level with radiculopathy; M50.122 Cervical disc disorder at C5-C6 level with radiculopathy
CPT/HCPCS: 71271; 71046; 72040

== ENCOUNTER 2023-07-06 12:58 | Outpatient (CLI) | payer MEDICARE, MEDICAID, SELFPAY ==
--- NOTE | 2023-07-06 13:00 | RT.EKG_ITS ---
APPROVED REPORT Exam: Resting ECG Reason for Exam: surgical clearance Patient Location: O HR:76 bpm ECG Measurements Heart Rate 76 AXIS NH 139 P 65 QRSd 83 QRS -3 QT 393 T 72 QTc 442 Conclusion Sinus rhythm...normal P axis, V-rate 50- 99 Normal Electrocardiogram
== END 2023-07-06 12:59 | disposition home or self-care (01) ==
PROVIDERS: Visit Provider Student in an Organized Health Care Education/Training Program
DX: Z01.818 Encounter for other preprocedural examination (principal)
CPT/HCPCS: 93005; 93010

== ENCOUNTER → 2023-08-02 02:33 | Outpatient (CLI) | payer MEDICARE, MEDICAID, SELFPAY ==
--- NOTE | 2023-08-02 13:49 | DI.CT_ITS ---
Exam(s) CT CHEST WO EXAM: CT CHEST WO CLINICAL HISTORY: SMOKER, F17.200, F/U CT NODULARITY. TECHNIQUE: Imaging protocol: Axial computed tomography images were obtained and coronal and sagittal reformatted images were created and reviewed. CONTRAST MATERIAL: Noncontrast COMPARISON: CT,DOC CT LDCT FOR LUNG CA SCREEN from 06/01/[address] CHEST LUNG CANCER SCREEN from 07/06/2023 FINDINGS: Pulmonary parenchyma: Interval clearing of previously noted nodules in the right upper lobe. Minimal residual peripheral scarring. No consolidation. No suspicious nodules. Emphysema: Mild centrilobular emphysema. Tracheobronchial tree: No mucous plugging. No bronchiectasis . Interstitial changes: Mild. Pleura: No effusion or pneumothorax. Heart: The heart is not dilated. The coronary arteries show minimal calcifications. Aorta: Thoracic aorta non-dilated. Lymph nodes: No enlarged lymph nodes. Bones: Mild degenerative changes are seen. No evidence of compression fracture. Upper abdomen: Unremarkable. Soft tissues: Unremarkable. IMPRESSION: Interval clearing of previously noted right upper lobe nodular infiltrate. No new findings. RADIATION DOSE DELIVERED: Total DLP Total DLP DATA REPOSITORY: All CT scans at this facility are submitted to the National Radiology Data Registry (NRDR) Dose Index Registry (DIR) with the [employer] (ACR). RADIATION OPTIMIZATION: All CT scans at this facility use at least one of these dose optimization te chniques: automated exposure control; mA and/or kV adjustment per patient size (includes targeted exa ms where dose is matched to clinical indication); or iterative reconstruction.
== END ==
PROVIDERS: Visit Provider Registered Nurse Diabetes Educator
DX: R91.8 Other nonspecific abnormal finding of lung field (principal); F17.210 Nicotine dependence, cigarettes, uncomplicated
CPT/HCPCS: 71250

== ENCOUNTER → 2023-09-21 10:37 | Outpatient (BNVA) | payer MEDICARE, MEDICAID, SELFPAY | PROVIDERS: Visit Provider Student in an Organized Health Care Education/Training Program | DX: M19.011 Primary osteoarthritis, right shoulder (principal); M75.101 Unspecified rotator cuff tear or rupture of right shoulder, not specified as traumatic | CPT/HCPCS: 99214 ==

== ENCOUNTER 2023-11-12 05:40 | Day surgery (SDC) | payer MEDICARE, MEDICAID, SELFPAY ==
[2023-11-12] VITALS (10 sets, daily range): BP systolic 94–195; BP diastolic 60–88; PULSE 61–90; RESP 14–21; TEMP 36.1–36.6; O2SAT 92–97; BMI 30.9
--- NOTE | 2023-11-12 06:13 | W.ANESPRE ---
General Info Date of Service Date Performed: 11/12/23 Height: 5 ft 1 in Weight: 74.162 kg Body Mass Index (BMI): 30.9 Surgical Procedure: Operation Date: 11/12/23 07:40 Proposed Procedure Side Surgeon p Shoulder Reverse Total Arthroplasty, Biceps Tenodesis Right Semaj Groves MD Meds Allergies and Home Medications Allergies Allergy/AdvReac Type Severity Reaction Status Date / Time iohexol [From Omnipaque] Allergy Severe Anaphylaxis Verified 11/12/23 06:14 meloxicam Allergy Intermediate Hives Verified 11/12/23 06:14 glatiramer (copolymer 1) Allergy Unknown Other (See Verified 11/12/23 06:14 [From Copaxone] Comment) iv contrast Allergy Severe Anaphylaxis Uncoded 11/12/23 06:14 Home Medication Medication Instructions Recorded citalopram 20 mg tablet 20 mg PO DAILY 12/30/21 epinephrine 0.3 mg/0.3 mL 0.3 mg IM ONCE 12/30/21 injection, auto-injector simvastatin 20 mg tablet 20 mg PO DAILY 12/30/21 ascorbate calcium (vitamin C) 500 500 mg PO DAILY 01/28/22 mg tablet cholecalciferol (vitamin D3) 50 50 mcg PO DAILY 01/28/22 mcg (2,000 unit) capsule loperamide 2 mg-simethicone 125 mg 1 tab PO DAILY PRN 02/16/22 chewable tablet omeprazole 20 mg capsule,delayed 40 cap PO DAILY 02/16/22 release acetaminophen 325 mg capsule 650 mg PO DIRECTED PRN 02/17/22 (Tylenol) acetaminophen 500 mg capsule 1,000 mg (2 x 500 mg) PO Q8H PRN 02/17/22 PRN #90 caps vitamin B complex 1 tab PO DAILY 06/03/23 Current Visit Medications: Current Medications Generic Name Dose Route Start Last Admin Trade Name Freq PRN Reason Stop Dose Admin Ringer's Solution 1,000 mls @ 30 mls/hr 11/12/23 06:00 IV 11/12/23 23:59 INFUSION ZAKI Cefazolin Sodium/Dextrose 2 gm in 50 mls @ 100 mls/hr 11/12/23 06:00 Ancef Duplex IVPB 11/12/23 23:59 PREOP ZAKI Tranexamic Acid 1,000 mg/ 60 mls @ 360 mls/hr 11/12/23 06:00 Sodium Chloride IVPB 11/12/23 23:59 PREOP ZAKI IV Miscellaneous Supplies 1 each 11/12/23 06:00 Iv Access IV 11/12/23 23:59 DIRECTED ZAKI Sodium Chloride 0 ml 11/12/23 06:00 Normal Saline Flush 10 Ml Syr IV 11/12/23 23:59 PRN PRN Sodium Chloride 0 ml 11/12/23 06:00 Normal Saline 10 Ml Vial IJ 11/12/23 23:59 DIRECTED PRN Sterile Water 0 ml 11/12/23 06:00 Water,Injection,Sterile 10 Ml Vial IJ 11/12/23 23:59 DIRECTED PRN PFSH Active Problems Active Problems: Problem Status Onset Code Rotator cuff tear, right M75.101 Arthritis of right glenohumeral joint M19.011 Trochanteric bursitis, right hip M70.61 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 Z96.642 Primary osteoarthritis involving multiple joints M15.9 Cannabis use without complication F12.90 Hyperlipidemia E78.5 GERD (gastroesophageal reflux disease) K21.9 Anxiety F41.9 Tobacco use Z72.0 Dorsalgia M54.9 Chronic pain G89.29 Multiple sclerosis G35 Primary insomnia F51.01 Medical History Medical History History of tobacco use Hx of gastroesophageal reflux (GERD) Hx of multiple sclerosis Surgical History Surgical History (Updated 11/10/23 @ 11:43 by Mahin Vasquez) History of left hip replacement History of skin graft Left great toe Status post tonsillectomy Partial History of hysterectomy History of bladder suspension procedure Tobacco Smoking/Tobacco Use Status: Current every day Tobacco Type: cigarettes Alcohol Alcohol Intake: current Alcohol intake frequency: a few times a week Alcohol type: hard liquor Substance Use Substance use: Daily Substance use type: marijuana Vital Signs and Lab Results Vital Signs Most Recent Vital Signs in EMR: Temp Pulse Resp BP Pulse Ox 36.3 C L 63 16 151/83 H 97 11/12/23 06:10 11/12/23 06:10 11/12/23 06:10 11/12/23 06:10 11/12/23 06:10 Lab Results Blood Type / Crossmatch: No Data to Display Complete Blood Count: No Data to Display Complete Metabolic Panel: No Data to Display Liver Function Panel: No Data to Display Coagulation Panel: No Data to Display Cardiac Panel: No Data to Display Arterial Blood Gas: No Data to Display Venous Blood Gas: No Data to Display Pancreas Panel: No Data to Display Thyroid Panel: No Data to Display Infectious Disease: No Data to Display Blood Cultures: No Data to Display Toxicology Panel: No Data to Display Imaging and Studies Imaging and Studies Study information below may be from another EMR and interpreted by another provider. Please see original notes in EMR for more complete details. EKG Summary: 07/05: sinus. 11/06/21: normal sinus. Stress Test Summary: 2007: negative. Pulmonary Function Summary: 02/05/22: normal spirometery, normal diffusing capacity. Anesthesia Assessment and Plan Anesthesia History Personal History: No History of Anesthesia Complications Family History: No Family History of Anesthesia Complications Exercise Tolerance Exercise Tolerance: Metabolic Equivalents>4 Cardiac & Pulmonary Exam Cardiac Exam: Normal S1/S2 Heart Sounds Pulmonary Exam: Clear Bilateral Breath Sounds Implantable Cardiac Device Does patient have a Pacemaker or an ICD?: No Airway Exam Known Difficult Airway: No Mallampati Class: 2 Mouth Opening: Normal (> 3cm) Thyromental Distance: Greater than 3 cm Neck Range of Motion: Full ROM Neck Circumference: Normal Teeth Condition: Normal Dentition ASA Classification ASA Score: ASA 2 Emergency Case?: No NPO Status NPO Status: NPO Clears >2 hours, Solids >8 hours Anesthesia Plan Resuscitation Status: Full Code Anesthesia Technique: General Anesthesia Airway Planned: Endotracheal Tube Pain Management: Surgeon and patient request nerve block Monitors Used: Standard Monitors Preoperative Comments:: 62 yo female for TSA Sig PMHx: smoker (tobacco/cannabis), GERD (well controlled on omeprazole/famotidine), anxiety (citalopram), MS (no recent issues), chronic pain, occ EtOH. . stress test 2008: negative. PFT: normal EKG: nsr. Previous Anes: - CHARITY, spinal, prop sedation, no issues.
[2023-11-12] MEDS: Lactated Ringers 1,000 ML 30 ML IV (06:43)
--- NOTE | 2023-11-12 07:07 | W.PM.DSUDISC ---
Date of service: 11/12/23 Time of Service: 14:00 Discharge Plan Disposition Patient Disposition: Home Condition: Stable Discharge Details Attending Provider: Semaj Groves Primary Care Provider: Unknown,Unknown Home Meds and New Rx's Prescriptions: New aspirin 81 mg tablet,delayed release (DR/EC) 81 mg PO DAILY 7 Days Qty: 7 0RF naproxen 250 mg tablet 250 - 500 mg PO BID PRNQty: 40 0RF Rx Instructions: take with a meal tramadol 50 mg tablet 50 mg PO Q8H PRN (Reason: severe pain) Qty: 9 0RF Continued cholecalciferol (vitamin D3) 50 mcg (2,000 unit) capsule 50 mcg PO DAILY ascorbate calcium (vitamin C) 500 mg tablet 500 mg PO DAILY citalopram 20 mg tablet 20 mg PO DAILY simvastatin 20 mg tablet 20 mg PO DAILY epinephrine 0.3 mg/0.3 mL auto-injector 0.3 mg IM ONCE Rx Instructions: as a single dose; may repeat once vitamin B complex Tablet 1 tab PO DAILY loperamide-simethicone 2-125 mg Tablet,Chewable 1 tab PO DAILY PRN omeprazole 20 mg capsule,delayed release(DR/EC) 40 cap PO DAILY Patient Comments: TAKE TWO CAPSULES BY MOUTH EVERY DAY acetaminophen 500 mg capsule 1,000 mg PO Q8H PRN PRNQty: 90 0RF Discontinued acetaminophen [Tylenol] 325 mg Capsule 650 mg PO DIRECTED PRN Discharge Instructions Additional Instructions: Surgery: Right reverse total shoulder arthroplasty with biceps tenodesis Activity: Do not lift anything heavier than a coffee. You should keep your arm at your side in a neutral position at all times except for gentle range of motion exercises, physical therapy, and essential activities. You should use the sling whenever you are out of the house. You may have to adjust the abduction pillow or remove it for comfort. At home it is best to remove the sling and rest the arm on a pillow at your side or support the operative side with your other hand. A physical therapy prescription will be sent electronically to start in about 3 weeks. STANDARD Reverse TSA Protocol. Prescriptions: Aspirin 81 mg take 1 daily to prevent a blood clot for 7 days, starting tomorrow Naproxen 250 mg take 1-2 every 12 hours with a meal as needed for moderate pain Tramadol 50 mg take 1 every 8 hours as needed for severe pain You may use [id number] Tylenol (acetaminophen) as needed for mild pain. These pain medications may be taken all at once or in different combinations as needed. Also, recommend Colace (docusate) as a stool softener as surgery and pain medicine cause constipation. You may try [id number] diphenhydramine (Benadryl) 25-50 mg nightly as a sleep aid Dressings: Leave dressing in place until follow-up. Keep clean and dry at all times. No showers please. Follow-up: 10-[address] Groves You may take off the leg compression stockings this evening at home. You may also leave them on a few days longer if you have a history of leg swelling or edema. Please call the office during business hours with any questions or concerns. Let us know right away if you develop any redness, drainage, fevers, chest pain, or trouble breathing. Do not drink alcohol or drive for at least 24 hours after anesthesia. Discharge Orders Discharge Orders: Discharge Order (Routine); Ordered 11/12/23 Ordered By: Semaj Groves DS: Diagnosis Discharge Diagnosis (1) Rotator cuff tear, right: Status: Acute (2) Arthritis of right glenohumeral joint: Status: Acute
--- NOTE | 2023-11-12 07:11 | W.PM.OP ---
Date of service: 11/12/23 Time of Service: 07:30 Operative Note Operative Note DATE OF PROCEDURE: 11/12/23 PRE-OP DIAGNOSIS: Right: 1. Chronic rotator cuff tearing 1. Glenohumeral arthritis 2. Long head of the biceps tendinopathy POST-OP DIAGNOSIS: same PROCEDURE: Right: 1. Reverse total shoulder arthroplasty, CPT # 12366 2. Open biceps tenodesis, CPT # 61971 The junior assistant manager was medically required as this procedure involves retraction, protection of neurovascular structures, and manipulation of multiple instruments and implants at the same time, which cannot be done without a skilled junior assistant manager. SURGEON: Semaj Groves LUMP ROOM SUPERVISOR: Liz Fuentes ANESTHESIA TYPE: Local By Surgeon, General LMA/ETT and Primary Nerve Block Refer to Anesthesia Record ESTIMATED BLOOD LOSS: 75 COMPLICATIONS: None Patient was transported to: PACU Implants: [employer] modular glenoid system baseplate 24 mm [employer] modular glenoid system central post 20 mm [employer] modular glenoid system peripheral locking screws 24 mm inferior, 32 mm superior, 16 mm posterior, 16 mm anterior [employer] modular glenoid system glenosphere 36 +4 mm lateralized [employer] humeral stem 135 degrees size 6 [employer] suture cup size 36 posterior offset [employer] humeral insert size 36+6 mm Indications: Please see complete medical record for details. Findings: Significant long head biceps tenosynovitis, high?grade degenerative tearing subscapularis and superior rotator cuff, espinoza labral degenerative tearing, and glenohumeral cartilage loss with humeral bony deformity. Procedure Description: In the operating room, general anesthesia was induced. The patient was positioned beachchair on the operating room table. All bony prominences were well-padded. Preoperative antibiotics were administered. The shoulder was prepped and draped in the usual sterile fashion for shoulder arthroplasty. The correct patient, procedure, and side of the procedure were all verified prior to incision. The deltopectoral approach was preinjected with local anesthetic containing epinephrine and taken to the anterior shoulder. Care was taken to bluntly dissect the interval between the deltoid and pectoralis major muscles and to identify the cephalic vein within its fat stripe. The the vein was diminutive and mobilized laterally. Subdeltoid space and conjoined tendon were freed of adhesions. The long head of the biceps tendon was identified just lateral to the lesser tuberosity. The uppermost margin of the pectoralis major tendon was released from the proximal humerus. The long head of the biceps tendon was tenodesed in situ using SutureTape in a [id number]-ok-[id number] fashion securing it superior margin the pectoralis major tendon. The biceps tendon was amputated and followed proximally to identify the rotator interval. A subscapularis peel was performed taking care to release the entire tendon in a full-thickness fashion from superior to inferior and lateral to medial while bringing the arm gradually into external rotation. It was then tenotomized off the lesser tuberosity given degenerative poor quality. Care was taken to avoid the axillary nerve by only working on the bone inferiorly and medially. The supraspinatus and infraspinatus were identified and debrided of high-grade degenerative partial-thickness tearing. Appropriate coagulation was achieved especially interiorly. The anatomic neck was cut using an oscillating saw with the humeral head bone brought back table in case there was a need for future bone grafting. The proximal uterus was then delivered from the wound and external rotation and adduction. The proximal humeral protection plate was used to provisionally confirm suture cup and glenosphere size. Reamers were started appropriately posterior to the bicipital groove taking care to maintain in line approach with the humeral canal. Sequential reaming was done from size 5 up to size 7, which had firm cortical chatter. Next, the broaches were sequentially used to open the proximal humerus starting with a size 5 and going up to size 6 and attempted to sing tothe appropriate depth while maintaining approximately 30 degrees retroversion. There was good metaphyseal fit and rotational control of the proximal humerus with size 6, but consistent with the template the suture cup was proud laterally. The posterior offset guide was used to ream for the suture cup. Attention was then turned to the glenoid and retractors were placed and a circumferential release performed using the long head of the biceps remnant to remove soft tissue about the glenoid rim. Care was taken inferiorly to work on bone only between 5 and 7:00 o'clock and bluntly elevate tissues inferiorly. The VIP guide was placed on the glenoid and used to confirm placement and trajectory of the central guidepin. The guidepin was inserted and advanced just through the far cortex ensuring adequate central fixation length. Depth gauge was used to confirm length. The glenosphere sizer was used to confirm positioning and glenosphere size. The backside of the baseplate reamer and underside of glenosphere reamers were then used. There was appropriate preparation of the glenoid surface. The baseplate was impacted and fully compressed onto the glenoid surface. The locking guide was then used to drill and place appropriately lengthed inferior, superior, anterior, and posterior screws. The pjoa-dqm-fodxwoosl reamer was used to confirm adequate peripheral reaming. The glenosphere was applied with the lumpia wrapper maker and then impacted to engage the Bundy taper. It was then locked with appropriate countersinking of the setscrew. The glenosphere was inspected and found to have good fit, appropriate positioning, and no soft tissue or bony impingement. Attention was then turned back to the proximal humerus. The humeral trial cup was connected. Trialing was commenced with +3 mm liner. The shoulder was reduced and taken through range of motion. Trial components were built up to +6 mm liner to achieve good stability and appropriate tension on the deltoid and conjoined tension. The trial components were removed from the proximal humerus. The wound was copiously irrigated with normal saline. A small amount of vancomycin powder was distributed in the proximal humerus. The humeral component and suture cup were impacted into place. It sat at a similar level as the trial. There was a slight incomplete crack possibly of the calcar that was inspected. The stem demonstrated absolutely no motion in the correct cannot really be probed at all and was really not consistent with a fracture. The trial liner was added, and the shoulder was reduced and range of motion, stability, and tension confirmed to be appropriate. The final liner was then connected, and range of motion, stability, and tension confirmed. Impaction of the final liner as well as shoulder testing did not reveal any notable problem at the medial calcar potential fracture site. The stem did not subside at all either. The shoulder was copiously irrigated with Betadine and normal saline. Vancomycin powder was distributed deeply about the shoulder and through subcutaneous tissues. The deltopectoral interval was approximated with 2-0 Monocryl. Subcutaneous tissue was irrigated then closed using 2-0 Monocryl in a buried interrupted fashion. Skin was closed using 3-0 Monocryl in a buried subcuticular fashion. Skin glue was applied to the incision. A silver impregnated bandage was placed over the incision. The extremity was placed into a shoulder immobilizer. The patient awoke from anesthesia without complication and was taken to the recovery room in stable condition.
--- NOTE | 2023-11-12 07:15 | W.ANESNERVE ---
Nerve Block Single Injection Procedure Date and Time Date Performed: 11/12/23 Procedure Start: 07:08 Location Where Procedure Performed Procedure Location: Day Surgery Unit Reason Performed: Postoperative Analgesia Requesting Provider: Semaj Groves Timeout Performed Timeout Performed: Yes Monitoring Used ECG, Blood Pressure and SpO2 Sterility Sterility: Hand Hygiene, Surgical Cap, Surgical Mask, Sterile Gloves and Chlorhexidine Sedation Given During Procedure Sedation Given (Indicate Dose Given): Versed IV Dose:: 2 mg Patient Mental Status Patient Mental Status: Sedate with meaningful communication Nerve Block 1st Nerve Block: Laterality: Right Block Type: Interscalene Ultrasound Image Saved?: Yes Needle / Catheter Used: 100mm SonoPlex II Local Anesthetic Bolus (Indicate Dose Given): Lidocaine used for local infiltration of skin, Bupivacaine 0.5% Dose:: 10 mL and Exparel Dose:: 10 mL Additives (Indicate Dose Given): None Ultrasound: Sterile probe cover and gel used Nerve Stimulator: Supplement to Ultrasound use and No twitch or parasthesia noted < 0.5 mA Paresthesia: None Procedure Tolerated: No Complications Procedure Outcome: Successful Performed By: Javad Geronimo
[2023-11-12] MEDS: ceFAZolin 2 GM/50 ML BAG IVPB (07:38)
--- NOTE | 2023-11-12 11:28 | DI.RAD_ITS ---
Exam(s) XR SHOULDER RT COMPLETE 2+V EXAM: XR SHOULDER RT COMPLETE 2+V INDICATION: Shoulder arthritis. COMPARISON: CT CT UPPER EXTREMITY RT WO from 06/18/2023 TECHNIQUE: 2D digital imaging was performed. Two views. FINDINGS: A reverse shoulder prosthesis has been placed. The alignment appears satisfactory. There is residua l postsurgical air in the soft tissues. DATA REPOSITORY: RADIATION DOSE DELIVERED:
[2023-11-12] MEDS: HYDROmorphone 2 MG/ML SYR IVP (11:31)
--- NOTE | 2023-11-12 11:46 | W.ANESPOSTOP ---
Postoperative Evaluation Date, Time and Location Date Performed: 11/12/23 Time Performed: 11:46 Patient Location: PACU Vital Signs Most Recent Imported Vital Signs: Most Recent Vital Signs Temp Pulse Resp BP Pulse Ox 36.4 C L 65 18 157/60 H 93 11/12/23 11:35 11/12/23 11:35 11/12/23 11:35 11/12/23 11:35 11/12/23 11:35 Pain Score Most Recent Pain Score: Most Recent Pain Score Pain Level 4 11/12/23 11:35 Assessment Mental Status: Awake (Alert & Oriented to Patient Baseline) Airway and Respiratory Function: Patent airway with normal (patient baseline) respiratory exam Cardiovascular Function: Hemodynamically Stable Hydration Status: Adequately Hydrated Nausea & Vomiting: No Nausea or Vomiting Pain: Pain is tolerable per patient Peripheral Nerve Block: Regional nerve block not resolved at time of post operative discharge
[2023-11-12] MEDS: Acetaminophen 500 MG TAB 1000 MG PO (12:11)
[2023-11-12] MEDS: Naproxen 500 MG TAB PO (12:18)
== END 2023-11-12 13:15 | disposition home or self-care (01) ==
PROVIDERS: Visit Provider Student in an Organized Health Care Education/Training Program
PROC: (CPT 23472; principal; 2023-11-12 07:30)
DX: M75.101 Unspecified rotator cuff tear or rupture of right shoulder, not specified as traumatic (principal); M19.011 Primary osteoarthritis, right shoulder; K21.9 Gastro-esophageal reflux disease without esophagitis; Z72.0 Tobacco use; M75.21 Bicipital tendinitis, right shoulder
CPT/HCPCS: 23472; 23430; C1713; 76942; 73030; C9290; J0665; J0690; J1100; J1170; J1805; J2250; J2405; J2704; J3370

== ENCOUNTER 2023-11-24 13:04 | Outpatient (CLI) | payer MEDICARE, MEDICAID, SELFPAY ==
--- NOTE | 2023-11-24 10:07 | DI.RAD_ITS ---
Exam(s) XR SHOULDER RT COMPLETE 2+V EXAM: XR SHOULDER RT COMPLETE 2+V CLINICAL HISTORY: F/U RIGHT RTSA. TECHNIQUE: 2D digital imaging was performed. Three images were obtained. Grashey and Y views were o btained. COMPARISON: CR XR SHOULDER RT COMPLETE 2+V from 11/12/2023 FINDINGS: BONES: There are stable post operative changes of a right total reverse shoulder replacement present. No fracture or dislocation. JOINTS: The orthopedic hardware is in good position. No evidence of hardware loosening. Mild degene rative changes are seen at the acromioclavicular joint. SOFT TISSUE: Normal. IMPRESSION: Stable right total reverse shoulder replacement. DATA REPOSITORY: RADIATION DOSE DELIVERED:
== END 2023-11-24 13:05 | disposition home or self-care (01) ==
LOC: DIORS 13:07
PROVIDERS: PCP Registered Nurse Diabetes Educator; Referring Provider Registered Nurse Diabetes Educator; Visit Provider Student in an Organized Health Care Education/Training Program
DX: Z47.1 Aftercare following joint replacement surgery; Z96.611 Presence of right artificial shoulder joint
CPT/HCPCS: 73030

== ENCOUNTER → 2024-01-18 09:58 | Outpatient (BNVA) | payer MEDICARE, MEDICAID, SELFPAY | PROVIDERS: PCP Registered Nurse Diabetes Educator; Visit Provider Student in an Organized Health Care Education/Training Program | DX: Z47.1 Aftercare following joint replacement surgery (principal); Z96.611 Presence of right artificial shoulder joint ==

== ENCOUNTER 2024-02-15 13:00 | Outpatient (CLI) | payer MEDICARE, MEDICAID, SELFPAY ==
--- NOTE | 2024-02-15 10:30 | DI.RAD_ITS ---
Exam(s) XR SHOULDER LT COMPLETE 2+V EXAM: XR SHOULDER LT COMPLETE 2+V CLINICAL HISTORY: LEFT SHOULDER PAIN. TECHNIQUE: 2D digital imaging was performed. COMPARISON: CR XR SHOULDER RT COMPLETE 2+V from 11/12/2023 CR XR SHOULDER RT COMPLETE 2+V from 11/24/2023 FINDINGS: 3 views No evidence of fracture or dislocation nor abnormal soft-tissue calcifications in the subacromial spa ce. There are moderate degenerative changes in the glenohumeral joint. There is a small osteophyte on the inferior articular surface of the humeral head. Also some degenerative subarticular cysts not ed. Bone density normal. No osseous lesions. IMPRESSION: Degenerative changes in the glenohumeral joint. DATA REPOSITORY: RADIATION DOSE DELIVERED:
--- NOTE | 2024-02-15 10:45 | DI.RAD_ITS ---
Exam(s) XR SHOULDER RT COMPLETE 2+V EXAM: XR SHOULDER RT COMPLETE 2+V CLINICAL HISTORY: RIGHT SHOULDER PAIN. TECHNIQUE: 2D digital imaging was performed. COMPARISON: CR XR SHOULDER RT COMPLETE 2+V from 11/24/2023 CR XR SHOULDER LT COMPLETE 2+V from 02/15/2024 FINDINGS: 3 views There is stable position alignment of the components of the reverse prosthesis. No fracture or loose gill evident. IMPRESSION: Stable satisfactory appearance of right shoulder prosthesis. DATA REPOSITORY: RADIATION DOSE DELIVERED:
== END 2024-02-15 13:01 | disposition home or self-care (01) ==
LOC: DIORS 13:03
PROVIDERS: PCP Registered Nurse Diabetes Educator; Referring Provider Registered Nurse Diabetes Educator; Visit Provider Student in an Organized Health Care Education/Training Program
DX: M19.011 Primary osteoarthritis, right shoulder; M19.012 Primary osteoarthritis, left shoulder
CPT/HCPCS: 99213; 73030

== ENCOUNTER 2024-05-01 15:49 | Outpatient (CLI) | payer MEDICARE, MEDICAID, SELFPAY ==
--- NOTE | 2024-05-01 08:36 | DI.RAD_ITS ---
Exam(s) XR KNEE LT 4V AP,LAT,OLGA,PAT EXAM: XR KNEE LT 4V AP,LAT,OLGA,PAT CLINICAL HISTORY: LEFT KNEE PAIN. TECHNIQUE: 2D digital imaging was performed of the left knee. Four images were obtained. Merchant, AP, lateral and PA tunnel views were obtained. COMPARISON: No exams were available for comparison FINDINGS: BONES: No acute fracture is present. No bony destructive lesion is seen. JOINTS: There is mild narrowing of the medial femoral tibial joint. There is a small joint effusion. No loose body. SOFT TISSUE: Normal. IMPRESSION: Medial compartment joint space narrowing and a small joint effusion. DATA REPOSITORY: RADIATION DOSE DELIVERED:
== END 2024-05-01 15:50 | disposition home or self-care (01) ==
LOC: DIORS 15:50
PROVIDERS: PCP Registered Nurse Diabetes Educator; Referring Provider Registered Nurse Diabetes Educator; Visit Provider Physician Assistant
DX: M17.12 Unilateral primary osteoarthritis, left knee; M71.22 Synovial cyst of popliteal space [Baker], left knee
CPT/HCPCS: 20610; J1010; 73564